=== PATIENT | male | born 1995 | race Caucasian/White ===

== ENCOUNTER 2021-05-01 16:28 | Outpatient (REF) | payer OTHER, SELFPAY ==
[2021-05-01 17:01] LABS: COVID-19 Test Negative (Negative)
== END 2021-05-01 16:29 | disposition home or self-care (01) ==
LOC: HO.LAB 16:28
PROVIDERS: Visit Provider Internal Medicine
DX: Z20.822 Contact with and (suspected) exposure to COVID-19 (principal)
CPT/HCPCS: 36415; 87635

== ENCOUNTER 2021-05-22 06:05 | Outpatient (REF) | payer OTHER, SELFPAY ==
[2021-05-22 07:11] LABS: COVID-19 Test Negative (Negative)
== END 2021-05-22 06:06 | disposition home or self-care (01) ==
LOC: HO.LAB 06:05
PROVIDERS: Visit Provider Internal Medicine
DX: Z20.822 Contact with and (suspected) exposure to COVID-19 (principal)
CPT/HCPCS: 87635

== ENCOUNTER 2022-07-26 12:38 | Emergency (ER) | payer OTHER, SELFPAY ==
--- NOTE | ~2022-07-26 | XR_ITS ---
EXAMINATION: XR SHOULDER, RIGHT CLINICAL INFORMATION: Drill injury. COMPARISON: None available. TECHNIQUE: AP external rotation, Grashey, scapular Y, and axillary views of the right shoulder. FINDINGS: The bones and soft tissues are normal. No fracture. Glenohumeral and acromioclavicular alignment is anatomic with normal joint space. No abnormal soft tissue calcifications. XR/XR shoulder RT min 2V IMPRESSION: Normal right shoulder.
[2022-07-26 12:45] VITALS: BP 139/70; PULSE 83; RESP 18; TEMP 36.8; O2SAT 100; BMI 34.0
--- NOTE | 2022-07-26 13:51 | ED_ITS ---
HPI - Extremity Problem General Chief complaint: Extremity Injury, Upper Stated complaint: Shoulder pain Time Seen by Provider: 07/26/22 12:52 Source: patient Mode of arrival: ambulatory Limitations: no limitations History of Present Illness HPI Narrative: 26-year-old male presents to the ER for evaluation of right shoulder pain after injury today in the [employer]. Today is his last day of training, he was doing a series of 5 somersaults when he had immediate pain of the right shoulder. He continued the rest of the drill. 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 While at lunch he reports the pain was worsening. It is located above the clavicle extends to the neck. It is worse with supination of the arm and abduction. He denies any numbness or tingling or weakness in the arm. He was able to do pushups after. He took Motrin and Tylenol so pain is improved. 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 He is right-hand dominant. MD Complaint: joint pain Onset (ago): hour(s) Pain Consistency: constant Location: right and upper extremity Quality: aching Radiation: other (to the neck) Relieving factors: rest Exacerbating factors: range of motion and palpation Associated symptoms: denies other symptoms Related Data Previous Rx's Medication Instructions Recorded cyclobenzaprine 10 mg tablet 10 mg PO TID PRN muscle spasm #14 07/26/22 tabs ibuprofen 800 mg tablet 800 mg PO Q8H PRN pain #14 tabs 07/26/22 lidocaine 5 % topical patch 1 patch topical DAILY #15 ea 07/26/22 Allergies Allergy/AdvReac Type Severity Reaction Status Date / Time No Known Allergies Allergy Verified 07/26/22 12:50 Review of Systems Review of Systems: Yes all other systems are reviewed and are negative [facility] Social History Social History Advance Directives: No Advance Directives Information Provided: No Physical Exam Vital Signs: Vital Signs: Last Vital Signs Temp 98.2 F 07/26/22 12:45 Pulse 83 07/26/22 12:45 Resp 18 07/26/22 12:45 BP 139/70 07/26/22 12:45 Pulse Ox 100 07/26/22 12:45 O2 Del Method 07/26/22 12:45 BMI result Body Mass Index 34.0 Appearance: Alert. Oriented X3. No acute distress. HEENT: normal inspection CVS: Normal heart rate and rhythm. Pulses normal. Respiratory: No respiratory distress. Skin: Skin warm and dry. Normal skin color. Normal skin turgor. No rashes. Extremities: Normal inspection of the bilateral shoulders and upper extremities. Patient has soft tissue tenderness of the upper trapezius into the right lateral neck. Limited range of motion of the right shoulder. Able to abduct to 90 degrees both anteriorly and laterally. Positive empty can test. Pain with supination. Neuro: Oriented X 3. No motor deficit. No sensory deficit. Equal pizzamaker strength bilaterally. 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 He has a positive empty can test here with pain upon supination and abduction. Unfortunately this will limit his ability to perform his job duties until his pain and strength are improved. Recommend further evaluation with Orthopedics and were [facility] to be clear to go back to his job. X-ray today was reviewed, no fractures or dislocations appreciated. Comfortable discharge home with NSAIDs, muscle relaxer, Lidoderm, outpatient follow-up with Ortho in [facility]. Patient counseled on the importance of proper follow-up and he expressed understanding. Differential Diagnosis Differential Diagnoses: The differential diagnosis associated with the presentation includes Shoulder sprain, shoulder strain, muscle spasm, rotator cuff injury, AC joint separation, clavicular fracture Independent Interpretation I performed an independent interpretation of an: Plain X-Ray Interpretation: X-ray reviewed, question of a mild AC joint separation, read by the radiologist as normal. Radiology Impression Discussion of test interpretation with radiology: I have reviewed the radiologist's reading. Radiologist Impression: EXAMINATION: XR SHOULDER, RIGHT CLINICAL INFORMATION: Drill injury.? COMPARISON: None available.? TECHNIQUE: AP external rotation, Grashey, scapular Y, and axillary views of the right shoulder. FINDINGS: The bones and soft tissues are normal. No fracture. Glenohumeral and acromioclavicular alignment is anatomic with normal joint space. No abnormal soft tissue calcifications.? XR/XR shoulder RT min 2V IMPRESSION: Normal right shoulder. Prescription Management I considered prescription management with: Pain Medication and Other (Muscle rel axer) Critical Care Time Critical Care Time Critical Care Time: No Discharge Plan Discharge Clinical Impression: Acute shoulder pain Patient Disposition: Home, Self-Care Instructions: Shoulder Pain (ED) Additional Instructions: X-ray today was normal. Your exam is concerning for possible rotator cuff injury. You may just have some soft tissue strain and injury but until you are further evaluated by Orthopedics, you are not able to safely perform duties of your job. Rest. Use ice to the area several times per Take the prescribed medications as directed EXAMINATION: XR SHOULDER, RIGHT CLINICAL INFORMATION: Drill injury.? COMPARISON: None available.? TECHNIQUE: AP external rotation, Grashey, scapular Y, and axillary views of the right shoulder. FINDINGS: The bones and soft tissues are normal. No fracture. Glenohumeral and acromioclavicular alignment is anatomic with normal joint space. No abnormal soft tissue calcifications.? XR/XR shoulder RT min 2V IMPRESSION: Normal right shoulder. Prescriptions: New cyclobenzaprine 10 mg tablet 10 mg PO TID PRN (Reason: muscle spasm) Qty: 14 0RF ibuprofen 800 mg tablet 800 mg PO Q8H PRN (Reason: pain) Qty: 14 0RF lidocaine 5 % adhesive patch,medicated 1 patch topical DAILY Qty: 15 0RF Rx Instructions: leave on most painful area for up to 12 hrs Ref[place] [facility] [place] [facility] [place]Provider Group] (right shoulder injury) [facility] [Provider Group]
== END 2022-07-26 14:26 | disposition home or self-care (01) ==
PROVIDERS: Emergency Provider Emergency Medicine
DX: Z04.2 Encounter for examination and observation following work accident (principal); M25.511 Pain in right shoulder
CPT/HCPCS: 73030; 99282; 99283

== ENCOUNTER 2022-12-25 00:46 | Emergency (ER) | payer OTHER, SELFPAY ==
--- NOTE | ~2022-12-25 | XR_ITS ---
EXAMINATION: XR ELBOW, RIGHT CLINICAL INFORMATION: Fall COMPARISON: None available. TECHNIQUE: AP, lateral, and oblique views of the right elbow. FINDINGS: No fracture or dislocation. Alignment is anatomic. Joint spaces are maintained. No elbow joint effusion. Soft tissues are unremarkable. XR/XR elbow RT min 3V IMPRESSION: Normal right elbow.
[2022-12-25 00:48] VITALS: BP 148/85; PULSE 100; RESP 18; TEMP 36.9; O2SAT 99; BMI 33.2
--- NOTE | 2022-12-25 01:01 | MHC.EDTECH ---
PATIENT ABRAISION ON RIGHT ELBOW CLEAN WITH SALINE AND PARIOXIDE.
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
--- NOTE | 2022-12-25 01:14 | MHC.EDTECH ---
NON STICK DRESSING APPLY TO PATIENT ABRASION ON RIGHT ELBOW .
== END 2022-12-25 01:52 | disposition home or self-care (01) ==
PROVIDERS: Emergency Provider Internal Medicine
DX: S50.311A Abrasion of right elbow, initial encounter (principal); S53.401A Unspecified sprain of right elbow, initial encounter; Y35.811A Legal intervention involving manhandling, law enforcement official injured, initial encounter; Y93.89 Activity, other specified; Y92.410 Unspecified street and highway as the place of occurrence of the external cause; Y99.0 Civilian activity done for income or pay
CPT/HCPCS: 73080; 99282; 99283

== ENCOUNTER → 2022-12-26 09:38 | Outpatient (BNVA) | payer OTHER, SELFPAY | PROVIDERS: Visit Provider Physician Assistant Medical | DX: S50.311A Abrasion of right elbow, initial encounter (principal); W01.0XXA Fall on same level from slipping, tripping and stumbling without subsequent striking against object, initial encounter | CPT/HCPCS: 99213 ==

== ENCOUNTER 2023-05-12 01:29 | Emergency (ER) | payer OTHER, SELFPAY ==
[2023-05-12 01:46] VITALS: BP 150/81; PULSE 95; RESP 18; TEMP 36.8; O2SAT 98; BMI 35.5
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
[2023-05-12 07:57] VITALS: BP 137/80; PULSE 96; RESP 18; TEMP 36.7; O2SAT 97
--- NOTE | 2023-05-12 07:58 | PC.NURSE ---
pt a&ox3, ambulating independently with steady gait, pt to discharge home with medications, vss.
== END 2023-05-12 07:58 | disposition home or self-care (01) ==
PROVIDERS: Emergency Provider Emergency Medicine
DX: S06.0X0A Concussion without loss of consciousness, initial encounter (principal); S00.33XA Contusion of nose, initial encounter; Y35.811A Legal intervention involving manhandling, law enforcement official injured, initial encounter; Y93.9 Activity, unspecified; Y92.89 Other specified places as the place of occurrence of the external cause; Y99.0 Civilian activity done for income or pay
CPT/HCPCS: 99282; 99283

== ENCOUNTER → 2023-05-14 11:22 | Outpatient (BNVA) | payer OTHER, SELFPAY | PROVIDERS: Visit Provider Physician Assistant Medical | DX: S09.92XA Unspecified injury of nose, initial encounter (principal); S00.33XA Contusion of nose, initial encounter; Y35.811A Legal intervention involving manhandling, law enforcement official injured, initial encounter | CPT/HCPCS: 70450; 70486; 99204 ==

== ENCOUNTER → 2023-05-21 13:18 | Outpatient (BNVA) | payer OTHER, SELFPAY | PROVIDERS: Visit Provider Physician Assistant | DX: S00.33XD Contusion of nose, subsequent encounter (principal); Y35.811D Legal intervention involving manhandling, law enforcement official injured, subsequent encounter | CPT/HCPCS: 99213 ==

== ENCOUNTER → 2023-10-04 08:05 | Outpatient (BNVA) | payer OTHER, SELFPAY | PROVIDERS: Visit Provider Registered Nurse | DX: Z77.21 Contact with and (suspected) exposure to potentially hazardous body fluids (principal) | CPT/HCPCS: 99203 ==

== ENCOUNTER → 2023-10-08 12:30 | Outpatient (BNVA) | payer OTHER, SELFPAY | PROVIDERS: Visit Provider Registered Nurse | DX: Z77.21 Contact with and (suspected) exposure to potentially hazardous body fluids (principal) | CPT/HCPCS: 99213 ==

== ENCOUNTER 2023-10-12 05:26 | Emergency (ER) | payer OTHER, SELFPAY ==
[2023-10-12 05:31] VITALS: BP 120/71; PULSE 86; RESP 17; TEMP 36.8; O2SAT 97; BMI 35.4
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
== END 2023-10-12 06:32 | disposition home or self-care (01) ==
PROVIDERS: Emergency Provider Emergency Medicine Emergency Medical Services
DX: Z77.21 Contact with and (suspected) exposure to potentially hazardous body fluids (principal); Z04.2 Encounter for examination and observation following work accident
CPT/HCPCS: 99282; 99283

== ENCOUNTER → 2023-10-14 12:52 | Outpatient (BNVA) | payer OTHER, SELFPAY | PROVIDERS: Visit Provider Physician Assistant Medical | DX: Z77.21 Contact with and (suspected) exposure to potentially hazardous body fluids (principal) | CPT/HCPCS: 99202 ==

== ENCOUNTER → 2023-10-18 09:01 | Outpatient (BNVA) | payer OTHER, SELFPAY | DX: Z77.21 Contact with and (suspected) exposure to potentially hazardous body fluids (principal) | CPT/HCPCS: 82150; 82565; 84450; 84460; 85025 ==

== ENCOUNTER → 2023-11-01 09:06 | Outpatient (BNVA) | payer OTHER, SELFPAY | PROVIDERS: Visit Provider Registered Nurse | DX: Z77.21 Contact with and (suspected) exposure to potentially hazardous body fluids (principal) | CPT/HCPCS: 82150; 82565; 84450; 84460; 85025; 99213 ==

== ENCOUNTER → 2023-11-19 09:11 | Outpatient (BNVA) | payer OTHER, SELFPAY | DX: Z77.21 Contact with and (suspected) exposure to potentially hazardous body fluids (principal) | CPT/HCPCS: 84450; 84460; 87389; 99211 ==

== ENCOUNTER → 2024-11-25 13:48 | Outpatient (BNVA) | payer OTHER, SELFPAY | PROVIDERS: Visit Provider Physician Assistant | DX: S40.021A Contusion of right upper arm, initial encounter (principal); S60.221A Contusion of right hand, initial encounter; S40.011A Contusion of right shoulder, initial encounter; W22.8XXA Striking against or struck by other objects, initial encounter; Z02.79 Encounter for issue of other medical certificate | CPT/HCPCS: 73130; 99204 ==